=== PATIENT | female | born 1950 | race Caucasian/White ===

== ENCOUNTER 2022-02-04 08:40 | Day surgery (SDC) | payer MEDICARE ==
[2022-01-29 13:48] LABS: BASOPHILS % (AUTO) 0.4 % (0.0-5.0); EOSINOPHILS % (AUTO) 1.2 % (0.0-8.0); LYMPHOCYTES % (AUTO) 25.4 % (21.0-51.0); MEAN CORPUSCULAR HEMOGLOBIN 30.5 pg (27.0-33.0); MEAN CORPUSCULAR HGB CONC 31.6 g/dL (32.0-36.0); MEAN CORPUSCULAR VOLUME 96.7 fL (79-99); NEUTROPHILS % (AUTO) 64.8 % (40.0-77.0); PLATELET COUNT (AUTO) 210 K/uL (130-400); RED BLOOD CELL COUNT(AUTO) 3.31 MIL/uL (4.00-5.50); RED CELL DISTRIBUTION WIDTH 13.3 % (11.0-15.5); WHITE BLOOD COUNT (AUTO) 5.6 K/uL (4.8-10.8)
[2022-01-29 13:55] LABS: CREATININE 1.7 mg/dL (0.5-1.5); POTASSIUM 4.6 mmol/L (3.5-5.1)
[2022-01-29 14:23] LABS: INR 0.93 (0.85-1.15); PROTHROMBIN TIME 10.1 SEC (9.6-11.6)
[2022-01-29 14:25] LABS: PARTIAL THROMBOPLASTIN TIME 24.8 SEC (26.3-35.5)
[2022-01-29 14:27] LABS: APPEARANCE,URINE CLEAR (CLEAR); BILIRUBIN,URINE NEGATIVE (NEGATIVE); COLOR,URINE YELLOW (YELLOW); GLUCOSE, URINE (UA) NEGATIVE (NEGATIVE); KETONES,URINE NEGATIVE (NEGATIVE); LEUKOCYTE ESTERASE ,URINE MODERATE (NEGATIVE); NITRATE,URINE NEGATIVE (NEGATIVE); OCCULT BLOOD,URINE NEGATIVE (NEGATIVE); PH,URINE 6.5 (5.0-8.0); PROTEIN,URINE NEGATIVE (NEGATIVE); UROBILINOGEN,URINE 0.2 mg/dL (0.2-1.0)
[2022-01-29 14:35] LABS: BACTERIA,URINE Few /HPF (None Seen); RBC,URINE 0-1 /HPF (0-1)
[2022-01-29 14:36] LABS: SQUAMOUS EPITHELIAL CELL,UR Moderate /HPF (0-2)
[2022-02-03 18:17] VITALS: BP 139/55
[~2022-02-04] VITALS: Ht 157.5 cm; Wt 82.7 kg
[2022-02-04] VITALS (11 sets, daily range): BP systolic 101–145; BP diastolic 32–66
[~2022-02-04 08:40] MED LIST: 0.9% NACL 500ML IV.SOLN 500 ML IV SCH; DiphenhydrAMINE HCL 50 MG/ML VIAL IVP SCH
[2022-02-04] MEDS ORDERED: FENTANYL CITRATE PF 50 MCG/1 ML 2ML VIAL ONE (09:43)
[2022-02-04] MEDS ORDERED: LIDOCAINE HCL 400MG/20ML VIAL ONE (09:43)
[2022-02-04] MEDS ORDERED: MIDAZOLAM HCL 1 MG/ML 2ML VIAL ONE (09:43)
[2022-02-04] MEDS ORDERED: HYDR25TA PO (10:15)
[2022-02-04] MEDS ORDERED: TIZA-194 PO (10:15)
[2022-02-04] MEDS ORDERED: GABA300C PO (10:15)
[2022-02-04] MEDS ORDERED: ALPR0.5T8 PO (10:15)
[2022-02-04] MEDS ORDERED: MORP-108 PO (10:15)
[2022-02-04] MEDS ORDERED: ATOR10TA69 PO (10:15)
[2022-02-04] MEDS ORDERED: CITA-108 PO (10:15)
[2022-02-04] MEDS ORDERED: PANT40TA54 PO (10:15)
[2022-02-04] MEDS ORDERED: ONDA4TAB10 PO (10:15)
[2022-02-04] MEDS ORDERED: FERR-72 PO (10:15)
[2022-02-04] MEDS ORDERED: RAMI10CA69 PO (10:15)
[2022-02-04] MEDS ORDERED: DICY10CA13 PO (10:15)
[2022-02-04] MEDS ORDERED: OCTYL 2-CYANOACRYLATE 1 EACH TP ONE (11:05)
[2022-02-04] MEDS ORDERED: ONDANSETRON 4MG INJ IV PRN (11:30)
[2022-02-04] MEDS ORDERED: ACETAMINOPHEN 325 MG TAB PO PRN (11:30)
== END 2022-02-04 16:35 | disposition home or self-care (01) ==
LOC: DAH 08:40
PROVIDERS: ATTEND Internal Medicine Interventional Cardiology
DX: R55 Syncope and collapse (principal); I49.3 Ventricular premature depolarization; I47.1 Supraventricular tachycardia; I10 Essential (primary) hypertension; E11.9 Type 2 diabetes mellitus without complications; F41.9 Anxiety disorder, unspecified; R53.83 Other fatigue; Z88.6 Allergy status to analgesic agent; Z79.899 Other long term (current) drug therapy
CPT/HCPCS: 80048; 85025; 85610; 85730; 87088; 81001; 36415; 93005; 33285; 82948; C1764; J7040; J1200; J3010; J3490; J2250; 99156; 99157

== ENCOUNTER → 2022-08-22 | Outpatient (CLI) | payer MEDICARE ==
[~2022-08-22] MED LIST changes: -0.9% NACL 500ML IV.SOLN 500 ML IV SCH; +ALPR0.5T8 PO; +ATOR10TA69 PO; +CITA-108 PO; +DICY10CA13 PO; -DiphenhydrAMINE HCL 50 MG/ML VIAL IVP SCH; +FERR-72 PO; +GABA300C PO; +HYDR25TA PO; +MORP-108 PO; +ONDA4TAB10 PO; +PANT40TA54 PO; +RAMI10CA69 PO; +TIZA-194 PO
== END | disposition home or self-care (01) ==
LOC: RAH 10:32
PROVIDERS: ATTEND Internal Medicine Gastroenterology
DX: R10.10 Upper abdominal pain, unspecified (principal); R11.0 Nausea; Z90.49 Acquired absence of other specified parts of digestive tract
CPT/HCPCS: 78264; 76700; A9541